=== PATIENT | female | born 1960 | race Caucasian/White ===

== ENCOUNTER 2022-09-16 08:13 | Day surgery (SDC) | payer OTHER ==
[~2022-09-16] VITALS: Ht 165.1 cm; Wt 81.6 kg
[2022-09-16] MEDS ORDERED: fentaNYL citrate 0.05 MG/ML VIAL ONE (08:51)
[2022-09-16] MEDS ORDERED: diphenhydrAMINE 50 MG/ML VIAL ONE (08:51)
[2022-09-16] MEDS ORDERED: MIDAZOLAM 5 MG/5 ML VIAL ONE (08:52)
[2022-09-16] MEDS ORDERED: fentaNYL citrate 0.05 MG/ML VIAL IVP ONE (11:45)
[2022-09-16] MEDS ORDERED: MIDAZOLAM 2 MG/2 ML VIAL IVP ONE (11:45)
== END 2022-09-16 11:50 | disposition home or self-care (01) ==
LOC: MDS 08:13 → MMU 08:14 → MDS 11:50
PROVIDERS: ATTEND Internal Medicine Gastroenterology
DX: K74.69 Other cirrhosis of liver (principal); I85.10 Secondary esophageal varices without bleeding; B18.2 Chronic viral hepatitis C; J45.909 Unspecified asthma, uncomplicated; K21.9 Gastro-esophageal reflux disease without esophagitis; M19.90 Unspecified osteoarthritis, unspecified site; Z79.899 Other long term (current) drug therapy; Z20.822 Contact with and (suspected) exposure to COVID-19
CPT/HCPCS: 43235; 87426; J2250; J3010; J1200

== ENCOUNTER 2023-03-15 18:58 | Emergency (ER) | payer OTHER ==
[~2023-03-15] VITALS: Ht 165.1 cm; Wt 85.3 kg
[2023-03-15 19:10] VITALS: BP 147/68
--- NOTE | 2023-03-15 21:48 | NUR ---
pt to bed 12
[2023-03-15 22:18] VITALS: BP 117/64
--- NOTE | 2023-03-15 22:23 | NUR ---
Patient is a known case of chronic Hepatitis C who consulted her PCP this morning. Her bloodwork showed a low platelet count.
[2023-03-15 22:54] LABS: EOSINOPHILS # (AUTO) 0.1 K/uL (0-0.4); EOSINOPHILS % (AUTO) 1.6 % (0.0-4.0); HEMATOCRIT 41.7 % (36-48); HEMOGLOBIN 14.2 g/dL (12.0-16.0); LYMPHOCYTES # (AUTO) 0.8 K/uL (2.5-16.5); LYMPHOCYTES % (AUTO) 23.2 % (20.5-51.1); MEAN CORPUSCULAR HEMOGLOBIN 31 pg (27-31); MEAN CORPUSCULAR HGB CONC 34 g/dL (33-37); MONOCYTES # (AUTO) 0.3 K/uL (0.8-1.0); MONOCYTES % (AUTO) 7.6 % (1.7-9.3); NEUTROPHILS # (AUTO) 2.4 K/uL (1.8-7.7); NEUTROPHILS % (AUTO) 66.6 % (42.2-75.2); PLATELET COUNT (AUTO) 71 K/uL (140-450); RED BLOOD CELL COUNT(AUTO) 4.58 MIL/uL (4.20-5.40); RED CELL DISTRIBUTION WIDTH 16.7 % (11.6-13.7); WHITE BLOOD COUNT (AUTO) 3.6 K/uL (4.8-10.8)
[2023-03-15 23:07] LABS: CARBON DIOXIDE 30.2 mmol/L (21-32); CREATININE 0.8 mg/dL (0.6-1.3); POTASSIUM 4.2 mmol/L (3.5-5.1); PROTHROMBIN TIME 13.7 secs (10.8-13.4); TOTAL BILIRUBIN 1.1 mg/dL (0.0-1.0)
--- NOTE | 2023-03-15 23:55 | NUR ---
Patient discharged with v/s stable. Written and verbal after care instructions given and explained. Patient verbalized understanding. Ambulatory with steady gait. All questions addressed prior to discharge. Advised to follow up with PMD.
== END 2023-03-15 23:55 | disposition home or self-care (01) ==
LOC: MED 18:58
DX: K76.9 Liver disease, unspecified (principal); D69.6 Thrombocytopenia, unspecified; B19.20 Unspecified viral hepatitis C without hepatic coma; R79.0 Abnormal level of blood mineral; Z79.899 Other long term (current) drug therapy
CPT/HCPCS: 36415; 80053; 85025; 85610; 85730; 99283

== ENCOUNTER 2023-05-05 10:36 | Day surgery (SDC) | payer OTHER ==
[~2023-05-05] VITALS: Ht 165.1 cm; Wt 83.5 kg
[2023-05-05 11:45] LABS: BASOPHILS % (AUTO) 0.8 % (0.0-2.0); EOSINOPHILS # (AUTO) 0.1 K/uL (0-0.4); EOSINOPHILS % (AUTO) 2.2 % (0.0-4.0); HEMATOCRIT 44.4 % (36-48); HEMOGLOBIN 15.1 g/dL (12.0-16.0); LYMPHOCYTES # (AUTO) 0.8 K/uL (2.5-16.5); LYMPHOCYTES % (AUTO) 21.2 % (20.5-51.1); MEAN CORPUSCULAR HEMOGLOBIN 31 pg (27-31); MEAN CORPUSCULAR HGB CONC 34 g/dL (33-37); MEAN CORPUSCULAR VOLUME 90.7 fL (80-94); MONOCYTES # (AUTO) 0.2 K/uL (0.8-1.0); MONOCYTES % (AUTO) 6.6 % (1.7-9.3); NEUTROPHILS # (AUTO) 2.6 K/uL (1.8-7.7); NEUTROPHILS % (AUTO) 69.2 % (42.2-75.2); RED CELL DISTRIBUTION WIDTH 17.3 % (11.6-13.7); WHITE BLOOD COUNT (AUTO) 3.8 K/uL (4.8-10.8)
[2023-05-05 11:59] LABS: PLATELET COUNT (AUTO) 66 K/uL (140-450)
[2023-05-05] MEDS ORDERED: PROPOFOL 200 MG/20 ML VIAL IV ONE ×3 (12:00→12:38)
[2023-05-05 12:07] LABS: ALBUMIN 3.1 g/dL (3.4-5.0); ANION GAP 11.7 (8-16); CARBON DIOXIDE 26.5 mmol/L (21-32); CREATININE 0.8 mg/dL (0.6-1.3); POTASSIUM 4.2 mmol/L (3.5-5.1); TOTAL BILIRUBIN 1.6 mg/dL (0.0-1.0)
[2023-05-05] MEDS ORDERED: LABETALOL 20 MG/4 ML VIAL IVP PRN (12:45)
[2023-05-05] MEDS ORDERED: ONDANSETRON 4 MG/2 ML VIAL IVP PRN (12:45)
[2023-05-05] MEDS ORDERED: hydrALAZINE 20 MG/ML VIAL IVP PRN (12:45)
[2023-05-05] MEDS ORDERED: LACTATED RINGERS 1,000 ML IV SCH (12:45)
[2023-05-05] MEDS ORDERED: fentaNYL citrate 0.05 MG/ML VIAL ONE (13:28)
[2023-05-05] MEDS ORDERED: fentaNYL citrate 0.05 MG/ML VIAL IVP ONE (13:30)
== END 2023-05-05 15:10 | disposition home or self-care (01) ==
LOC: MDS 10:36 → MMU 10:38 → MDS 15:10
PROVIDERS: ATTEND Internal Medicine Gastroenterology
DX: K74.60 Unspecified cirrhosis of liver (principal); I85.10 Secondary esophageal varices without bleeding; Z90.710 Acquired absence of both cervix and uterus
CPT/HCPCS: 36415; 43244; 71045; 74176; 80053; 85025; J2704; J3010; Q0092

== ENCOUNTER 2023-05-17 18:48 | Emergency (ER) | payer OTHER ==
[~2023-05-17] VITALS: Ht 165.1 cm; Wt 81.2 kg
[2023-05-17 19:07] VITALS: BP 142/98; PULSE 104; RESP 20; TEMP 98.5; O2SAT 98
[2023-05-17] MEDS ORDERED: NACL 0.9% 1,000 ML IV ONE ×2 (19:45→21:00)
[2023-05-17 20:20] LABS: BASOPHILS # (AUTO) 0.2 K/uL (0.00-0.22); BASOPHILS % (AUTO) 3.9 % (0.0-2.0); EOSINOPHILS % (AUTO) 0.6 % (0.0-4.0); HEMATOCRIT 45.9 % (36-48); HEMOGLOBIN 15.3 g/dL (12.0-16.0); LYMPHOCYTES # (AUTO) 0.7 K/uL (2.5-16.5); MEAN CORPUSCULAR HEMOGLOBIN 31 pg (27-31); MEAN CORPUSCULAR HGB CONC 33 g/dL (33-37); MEAN CORPUSCULAR VOLUME 91.3 fL (80-94); MONOCYTES # (AUTO) 0.6 K/uL (0.8-1.0); NEUTROPHILS # (AUTO) 4.1 K/uL (1.8-7.7); NEUTROPHILS % (AUTO) 72.5 % (42.2-75.2); PLATELET COUNT (AUTO) 75 K/uL (140-450); RED BLOOD CELL COUNT(AUTO) 5.03 MIL/uL (4.20-5.40); RED CELL DISTRIBUTION WIDTH 16.5 % (11.6-13.7); WHITE BLOOD COUNT (AUTO) 5.6 K/uL (4.8-10.8)
[2023-05-17 20:41] LABS: ALBUMIN 2.8 g/dL (3.4-5.0); ANION GAP 11.3 (8-16); CALCIUM 7.8 mg/dL (8.5-10.1); CARBON DIOXIDE 26.5 mmol/L (21-32); POTASSIUM 3.8 mmol/L (3.5-5.1); TOTAL BILIRUBIN 1.6 mg/dL (0.0-1.0); TOTAL PROTEIN, SERUM 7.1 g/dL (6.4-8.2)
[2023-05-17] MEDS ORDERED: SULF-59 PO (23:39)
[2023-05-17 23:50] VITALS: BP 139/73; PULSE 68; RESP 18; TEMP 98.4; O2SAT 99
== END 2023-05-17 23:50 | disposition home or self-care (01) ==
LOC: MED 18:48
DX: L03.317 Cellulitis of buttock (principal); Z79.899 Other long term (current) drug therapy
CPT/HCPCS: 36415; 80053; 82948; 83605; 85025; 87040; 96360; 96361; 99284; J7030

== ENCOUNTER 2023-06-02 18:49 | Emergency (ER) | payer OTHER ==
[~2023-06-02] VITALS: Ht 165.1 cm; Wt 81.6 kg
[~2023-06-02 18:49] MED LIST: SULF-59 PO
[2023-06-02 19:03] VITALS: BP 112/62; PULSE 99; RESP 14; TEMP 97.8; O2SAT 96
[2023-06-02] MEDS ORDERED: MECLIZINE 25 MG TAB PO ONE (20:45)
[2023-06-02] MEDS ORDERED: diazePAM 5 MG TAB PO ONE (21:35)
[2023-06-02] MEDS ORDERED: ONDA8TAB87 PO (21:54)
[2023-06-02] MEDS ORDERED: DIAZ5TAB6 PO (21:54)
[2023-06-02 22:44] VITALS: BP 112/62; PULSE 99; RESP 14; TEMP 97.8; O2SAT 96
== END 2023-06-02 22:44 | disposition home or self-care (01) ==
LOC: MED 18:49
DX: R42 Dizziness and giddiness (principal); R11.2 Nausea with vomiting, unspecified; E07.9 Disorder of thyroid, unspecified; Z79.899 Other long term (current) drug therapy; Z91.013 Allergy to seafood; Z98.890 Other specified postprocedural states; Z90.710 Acquired absence of both cervix and uterus; Z86.19 Personal history of other infectious and parasitic diseases
CPT/HCPCS: 99283; J8597

== ENCOUNTER 2023-08-18 06:47 | Day surgery (SDC) | payer OTHER ==
[~2023-08-18] VITALS: Ht 165.1 cm; Wt 83.5 kg
[~2023-08-18 06:47] MED LIST changes: +DIAZ5TAB6 PO; +ONDA8TAB87 PO
[2023-08-18] MEDS ORDERED: fentaNYL citrate 0.05 MG/ML VIAL ONE (07:26)
[2023-08-18] MEDS ORDERED: diphenhydrAMINE 50 MG/ML VIAL ONE (07:26)
[2023-08-18] MEDS ORDERED: MIDAZOLAM 5 MG/5 ML VIAL ONE (07:27)
[2023-08-18] MEDS ORDERED: fentaNYL citrate 0.05 MG/ML VIAL IVP ONE ×2 (08:15→10:25)
[2023-08-18] MEDS ORDERED: MIDAZOLAM 2 MG/2 ML VIAL IVP ONE ×2 (08:15→10:25)
== END 2023-08-18 10:10 | disposition home or self-care (01) ==
LOC: MMU 06:47 → MDS 06:47
PROVIDERS: ATTEND Internal Medicine Gastroenterology
DX: K74.69 Other cirrhosis of liver (principal); I85.10 Secondary esophageal varices without bleeding; B17.11 Acute hepatitis C with hepatic coma; K44.9 Diaphragmatic hernia without obstruction or gangrene; K21.9 Gastro-esophageal reflux disease without esophagitis; Z87.891 Personal history of nicotine dependence; Z98.890 Other specified postprocedural states
CPT/HCPCS: 43235; J2250; J3010; J1200

== ENCOUNTER 2024-03-08 20:45 | Emergency (ER) | payer OTHER ==
[~2024-03-08] VITALS: Ht 165.1 cm; Wt 86.2 kg
[2024-03-08 20:59] VITALS: BP 129/67; PULSE 97; RESP 20; TEMP 97.8; O2SAT 98
[2024-03-08] MEDS ORDERED: ACET-8905 PO (21:41)
[2024-03-08] MEDS: KETOROLAC 60 MG/2 ML VIAL IM ONE (21:43)
== END 2024-03-08 21:55 | disposition home or self-care (01) ==
LOC: MED 20:45
DX: M25.561 Pain in right knee (principal); E03.9 Hypothyroidism, unspecified; Z79.899 Other long term (current) drug therapy; Z91.013 Allergy to seafood; Z98.890 Other specified postprocedural states; Z90.710 Acquired absence of both cervix and uterus
CPT/HCPCS: 96372; 99283; J1885